=== PATIENT | male | born 1965 | race Asian ===

== ENCOUNTER 2020-05-24 14:38 | Inpatient (IN) | payer MEDICAID, OTHER ==
[~2020-05-24] VITALS: Ht 162.6 cm; Wt 64.8 kg
[2020-05-24 16:08] LABS: Basophils # (auto) 0.1 10 ^3/uL (0-0.2); Basophils % (auto) 0.6 % (0.0-2.0); Eosinophils # (auto) 0 10 ^3/uL (0-0.8); Eosinophils % (auto) 0.3 % (0.0-7.0); Hematocrit 45.3 % (41.0-53.0); Hemoglobin 15.4 g/dL (13.5-17.5); Lymphocytes # (auto) 1.4 10 ^3/uL (0.4-5.4); Lymphocytes % (auto) 11.2 % (10.0-50.0); Mean Corpuscular Hemoglobin 32.6 pg (28.0-32.0); Mean Corpuscular Volume 95.9 fL (80.0-100.0); Monocytes # (auto) 0.6 10 ^3/uL (0-1.3); Monocytes % (auto) 4.7 % (0.0-12.0); Neutrophils # (auto) 10.1 10 ^3/uL (1.6-8.6); Neutrophils % (auto) 83.2 % (37.0-80.0); Nucleated Red Blood Cells % 0.1 %; Platelet Count (auto) 197 10^3/uL (140-450); Red Blood Cells 4.72 10^6/uL (4.5-5.90); White Blood Cell 12.1 10^3/uL (4.4-10.8)
[2020-05-24 16:27] LABS: Calcium 8.6 mg/dL (8.5-10.1)
[2020-05-24 16:32] LABS: Albumin 4.1 g/dL (3.4-5.0); BUN/Creatinine Ratio 13.8
[2020-05-24 16:35] LABS: Bilirubin, Total 0.7 mg/dL (0.2-1.0)
[2020-05-24] MEDS ORDERED: NITROGLYCERIN 0.4 MG SL TAB SL ONE (17:00)
[2020-05-24] MEDS ORDERED: MORPHINE SULFATE 4 MG/ML SYR/VIAL IV ONE (17:00)
[2020-05-24] MEDS ORDERED: ONDANSETRON HCL 4 MG/2 ML VIAL IV ONE ×2 (17:00→18:45)
[2020-05-24] MEDS ORDERED: ASPirin 81 mg TAB PO ONE (17:00)
[2020-05-24] MEDS ORDERED: PANTOPRAZOLE 40 MG/10 ML VIAL INJ IV ONE (17:45)
[2020-05-24] MEDS ORDERED: CLOPIDOGREL BISULFATE 75 MG TAB PO ONE (18:00)
[2020-05-24] MEDS ORDERED: SODIUM CHLORIDE 0.9% 1,000 ML IV ONE (18:15)
[2020-05-24] MEDS ORDERED: HYDROmorphone HCL 2 MG/ML VL IV ONE (18:45)
[2020-05-24 20:10] LABS: Urine Bacteria NONE SEEN /hpf (None Seen); Urine Blood Negative /uL (Negative); Urine Mucus FEW (None Seen); Urine Specific Gravity 1.027 (1.001-1.035); Urine WBC 1 /hpf (0 - 3)
[2020-05-24] MEDS ORDERED: MORPHINE SULF INJ 2 MG/ML SYRINGE 1ML IV PRN (21:15)
[2020-05-24] MEDS ORDERED: NITROGLYCERIN 0.4 MG SL TAB SL PRN (21:15)
[2020-05-24] MEDS ORDERED: MORPHINE SULFATE 4 MG/ML SYR/VIAL IV PRN (21:15)
[2020-05-24] MEDS ORDERED: ACETAMINOPHEN 325 MG TAB PO PRN (21:15)
[2020-05-24] MEDS ORDERED: HYDROcodone-ACET 5/325MG TAB PO PRN (21:15)
[2020-05-24] MEDS ORDERED: ONDANSETRON HCL 4 MG/2 ML VIAL IV PRN (21:15)
[2020-05-24] MEDS: ATORVASTATIN 20 MG TAB PO SCH (22:10)
[2020-05-24] MEDS: SODIUM CHLORIDE 0.9% 1,000 ML IV SCH (22:10)
[2020-05-24] MEDS: METOPROLOL TARTRATE 25 MG TAB PO SCH (22:11)
[2020-05-24 22:55] VITALS: BP 122/73
[2020-05-25 05:00] VITALS: BP 114/72
[2020-05-25 06:34] LABS: Basophils # (auto) 0 10 ^3/uL (0-0.2); Basophils % (auto) 0.5 % (0.0-2.0); Eosinophils # (auto) 0.1 10 ^3/uL (0-0.8); Eosinophils % (auto) 1.6 % (0.0-7.0); Hematocrit 41.1 % (41.0-53.0); Hemoglobin 13.6 g/dL (13.5-17.5); Lymphocytes # (auto) 2.2 10 ^3/uL (0.4-5.4); Lymphocytes % (auto) 24.4 % (10.0-50.0); Mean Corpuscular Hemoglobin 32.1 pg (28.0-32.0); Mean Corpuscular Hgb Conc. 33.1 g/dL (32.0-36.0); Mean Corpuscular Volume 96.9 fL (80.0-100.0); Monocytes # (auto) 0.9 10 ^3/uL (0-1.3); Monocytes % (auto) 9.5 % (0.0-12.0); Neutrophils # (auto) 5.8 10 ^3/uL (1.6-8.6); Nucleated Red Blood Cells % 0.1 %; Platelet Count (auto) 167 10^3/uL (140-450); Red Blood Cells 4.24 10^6/uL (4.5-5.90); Red Cell Distribution Width 12.8 % (11.8-14.3); White Blood Cell 9.1 10^3/uL (4.4-10.8)
[2020-05-25 06:49] LABS: Calcium 7.9 mg/dL (8.5-10.1); Potassium 3.7 mmol/L (3.5-5.1)
[2020-05-25 06:52] LABS: BUN/Creatinine Ratio 13.8
[2020-05-25 09:00] VITALS: BP 117/73
[2020-05-25] MEDS: ASPirin 81 mg TAB PO SCH (10:01)
[2020-05-25] MEDS: ISOSORBIDE MONONITRATE ER 60 MG TAB PO SCH (10:01)
[2020-05-25] MEDS: METOPROLOL TARTRATE 25 MG TAB PO SCH ×2 (10:02→22:39)
[2020-05-25] MEDS: CLOPIDOGREL BISULFATE 75 MG TAB PO SCH (10:02)
[2020-05-25] MEDS: PANTOPRAZOLE 40 MG TAB PO SCH (10:02)
[2020-05-25] MEDS: SODIUM CHLORIDE 0.9% 1,000 ML IV SCH ×2 (11:50→23:55)
[2020-05-25 13:00] VITALS: BP 116/80
[2020-05-25] MEDS ORDERED: CLOP75TA41 PO (14:33)
[2020-05-25] MEDS ORDERED: ISOS60TA24 PO (14:33)
[2020-05-25] MEDS ORDERED: ATOR40TA52 PO (14:33)
[2020-05-25] MEDS ORDERED: METO25TA93 PO (14:33)
[2020-05-25] MEDS ORDERED: MECL25TA18 PO (14:33)
[2020-05-25] MEDS ORDERED: ASPI-543 PO (14:33)
[2020-05-25 17:00] VITALS: BP 121/79
[2020-05-25 21:00] VITALS: BP 123/75
[2020-05-25] MEDS: ATORVASTATIN 20 MG TAB PO SCH (22:39)
[2020-05-25] MEDS: metroNIDAZOLE 500 MG TAB PO SCH (22:39)
[2020-05-26 05:00] VITALS: BP 105/69
[2020-05-26] MEDS: metroNIDAZOLE 500 MG TAB PO SCH (06:20)
[2020-05-26 08:54] VITALS: BP 110/71
[2020-05-26] MEDS: PANTOPRAZOLE 40 MG TAB PO SCH (10:33)
[2020-05-26] MEDS: METOPROLOL TARTRATE 25 MG TAB PO SCH (10:33)
[2020-05-26] MEDS: CLOPIDOGREL BISULFATE 75 MG TAB PO SCH (10:33)
[2020-05-26] MEDS: ISOSORBIDE MONONITRATE ER 60 MG TAB PO SCH (10:34)
[2020-05-26] MEDS: ASPirin 81 mg TAB PO SCH (10:34)
[2020-05-26 13:00] VITALS: BP 102/62
[2020-05-26] MEDS ORDERED: MET500T PO (14:19)
[2020-05-26 15:46] VITALS: BP 110/71
[2020-05-26 17:00] VITALS: BP 98/61
== END 2020-05-26 17:29 | disposition home or self-care (01) | DRG 249 ==
LOC: ER 14:38 → OBSVTOIN 14:39 → TELE 14:39 → TELE-WESTW 22:55
PROVIDERS: ADMIT Physician Assistant; ATTEND Internal Medicine Nephrology
DX: A05.9 Bacterial foodborne intoxication, unspecified (principal); I10 Essential (primary) hypertension; E78.5 Hyperlipidemia, unspecified; N28.1 Cyst of kidney, acquired; I25.10 Atherosclerotic heart disease of native coronary artery without angina pectoris; R65.10 Systemic inflammatory response syndrome (SIRS) of non-infectious origin without acute organ dysfunction; I70.8 Atherosclerosis of other arteries; M47.9 Spondylosis, unspecified
CPT/HCPCS: 36415; 71045; 74176; 76775; 80048; 80053; 81001; 82150; 83690; 83880; 84443; 84484; 85025; 93005; 96361; 96374; 96375; C9113; G0378; J2405